=== PATIENT | male | born 1965 | race Caucasian/White ===

== ENCOUNTER 2022-09-02 17:02 | Emergency (ER) | payer SELFPAY ==
[~2022-09-02] VITALS: Ht 182.9 cm; Wt 99.3 kg
[2022-09-02 17:06] VITALS: BP_SYST 113; PULSE 115; RESP 18; TEMP 98.3; O2SAT 98
[2022-09-02 17:46] LABS: INR 0.9 (0.80-1.20); PROTHROMBIN TIME 9.6 SECS (9.5-12.5)
[2022-09-02 17:51] LABS: BASOPHILS # (AUTO) 0.1 K/uL (0.0-0.2); BASOPHILS % (AUTO) 1.3 % (0.0-2.0); EOSINOPHILS # (AUTO) 0.5 K/uL (0.0-0.4); HEMATOCRIT 49.2 % (36-54); HEMOGLOBIN 17.3 g/dL (14.0-18.0); LYMPHOCYTES # (AUTO) 1.7 K/uL (1.0-5.5); LYMPHOCYTES % (AUTO) 22.6 % (20.5-51.5); MEAN CORPUSCULAR HEMOGLOBIN 35 pg (27-31); MEAN CORPUSCULAR HGB CONC 35 % (32-36); MEAN CORPUSCULAR VOLUME 99 fL (79.0-98.0); MONOCYTES # (AUTO) 0.5 K/uL (0.0-1.0); MONOCYTES % (AUTO) 6.6 % (1.7-9.3); NEUTROPHILS # (AUTO) 4.9 K/uL (1.8-7.7); NEUTROPHILS % (AUTO) 63.5 % (40.0-70.0); PLATELET COUNT (AUTO) 360 K/uL (130-430); RED BLOOD CELL COUNT(AUTO) 4.98 MIL/uL (4.2-6.2); RED CELL DISTRIBUTION WIDTH 13.8 % (9.0-15.0); WHITE BLOOD COUNT (AUTO) 7.7 K/uL (4.8-10.8)
--- NOTE | 2022-09-02 17:51 | NUR ---
Patient triaged and placed in waiting room. VSS and patient appears in no acute distress at this time. Accompanied by self , awaiting available bed, and MD notified of need for MSE.
[2022-09-02 17:52] LABS: ALANINE AMINOTRANSFERASE 33 U/L (12-78); ALBUMIN 4.2 g/dL (3.4-4.8); ANION GAP 6 (5-15); CALCIUM 9.5 mg/dL (8.4-11.0); CHLORIDE 104 mmol/L (98-107); CREATININE 1.57 mg/dL (0.55-1.30); GFR AFRICAN AMERICAN 59 mL/min (>90); GLUCOSE 112 mg/dL (74-106); TOTAL BILIRUBIN 0.5 mg/dL (0.0-1.0); UREA NITROGEN, BLOOD 11 mg/dL (8-21)
[2022-09-02 18:04] LABS: ASPARTATE AMINOTRANSFERASE 8 U/L (10-37)
--- NOTE | 2022-09-02 19:34 | NUR ---
Dr. Olsen with patient in triage for MSE.
--- NOTE | 2022-09-02 21:20 | NUR ---
Called patient for bed placement. No found in waiting room.
--- NOTE | 2022-09-02 21:30 | NUR ---
Called patient for bed placement. No found in waiting room.
--- NOTE | 2022-09-02 21:38 | NUR ---
Called patient for bed placement. No found in waiting room.
== END 2022-09-02 21:38 | disposition left against medical advice (07) ==
LOC: SED 17:02
DX: R07.9 Chest pain, unspecified (principal); E11.22 Type 2 diabetes mellitus with diabetic chronic kidney disease; N18.9 Chronic kidney disease, unspecified; Z85.841 Personal history of malignant neoplasm of brain; Z79.899 Other long term (current) drug therapy
CPT/HCPCS: 36415; 71045; 80053; 84484; 85025; 85379; 85610-TC; 93005; 99285